=== PATIENT | female | born 1990 | race African-American/Black ===

== ENCOUNTER 2021-05-19 15:24 | Emergency (ER) | payer MEDICAID, OTHER ==
[~2021-05-19] VITALS: Ht 160 cm; Wt 127.9 kg
[2021-05-19 15:51] LABS: Urine Bacteria FEW /hpf (None Seen); Urine Blood Negative /uL (Negative); Urine Mucus FEW (None Seen); Urine Specific Gravity 1.014 (1.001-1.035); Urine WBC 19 /hpf (0 - 5)
[2021-05-19] MEDS ORDERED: LIDOCAINE 1% HCL (LOCAL ANESTH.) INJ 20ML MDV ONE (16:44)
[2021-05-19] MEDS ORDERED: cefTRIAXone SOD 1,000 MG VL IM ONE (16:45)
[2021-05-19] MEDS ORDERED: PHENAZOPYRIDINE HCL 100 MG TAB PO ONE (16:45)
[2021-05-19 16:59] VITALS: BP 141/71
== END 2021-05-19 17:08 | disposition home or self-care (01) ==
LOC: ER 15:24
DX: N39.0 Urinary tract infection, site not specified (principal); Z32.01 Encounter for pregnancy test, result positive
CPT/HCPCS: 81001; 81025; 96372; 99283; J0696; J2001

== ENCOUNTER 2022-06-09 13:12 | Emergency (ER) | payer MEDICAID ==
[~2022-06-09] VITALS: Ht 162.6 cm; Wt 220.0 kg
[2022-06-09 14:10] LABS: Urine Bacteria FEW /hpf (None Seen); Urine Blood 2+ /uL (Negative); Urine Specific Gravity 1.008 (1.001-1.035); Urine WBC 221 /hpf (0 - 5); Urine WBC Clumps PRESENT /hpf (None Seen)
[2022-06-09 15:49] VITALS: BP 130/72
[2022-06-09] MEDS ORDERED: PHEN200T16 PO (15:52)
[2022-06-09] MEDS ORDERED: CIPR-173 PO (15:52)
[2022-06-09] MEDS ORDERED: cefTRIAXone SOD 1,000 MG VL IM ONE (16:00)
[2022-06-09] MEDS ORDERED: PHENAZOPYRIDINE HCL 100 MG TAB PO ONE (16:00)
== END 2022-06-09 16:07 | disposition home or self-care (01) ==
LOC: ER 13:12
DX: N39.0 Urinary tract infection, site not specified (principal); E66.01 Morbid (severe) obesity due to excess calories; Z68.45 Body mass index [BMI] 70 or greater, adult
CPT/HCPCS: 81001; 96372; 99283; J0696